=== PATIENT | male | born 1990 ===

== ENCOUNTER 2024-03-02 19:41 | Emergency (ER) | payer OTHER ==
[~2024-03-02] VITALS: Ht 167.6 cm; Wt 72.0 kg
[2024-03-02 19:52] VITALS: TEMP 98.3
[2024-03-02 20:18] VITALS: BP 151/69; PULSE 82; RESP 18; O2SAT 98
[2024-03-02] MEDS: CIPROFLOXACIN HCL 250 MG TABLET PO ONE (20:41)
[2024-03-02] MEDS: IBUPROFEN 600 MG TABLET PO ONE (20:41)
[2024-03-02] MEDS: ACETAMINOPHEN 500 MG TABLET PO ONE (20:41)
[2024-03-02] MEDS: PERTUSS(ACELL),DIPH,TET/PF 0.5 ML SYRINGE [ADULT] IM. ONE (20:43)
[2024-03-02] MEDS ORDERED: CIPR500T10 PO (21:28)
[2024-03-02] MEDS ORDERED: IBUP-1492 PO (21:29)
== END 2024-03-02 22:17 | disposition home or self-care (01) ==
LOC: EMS 19:41 → EDBD 19:41 → EMS 22:17
DX: S91.332A Puncture wound without foreign body, left foot, initial encounter (principal); F12.90 Cannabis use, unspecified, uncomplicated; Z23 Encounter for immunization; W22.8XXA Striking against or struck by other objects, initial encounter; Y93.89 Activity, other specified; Y92.89 Other specified places as the place of occurrence of the external cause; Y99.8 Other external cause status
CPT/HCPCS: 90471; 90715; 99284